=== PATIENT | male | born 1990 | race Caucasian/White ===

== ENCOUNTER 2018-03-11 14:56 | Emergency (ER) | payer MEDICAID, OTHER ==
[~2018-03-11] VITALS: Ht 175.3 cm; Wt 85.3 kg
[2018-03-11 15:08] VITALS: BP 163/62
[2018-03-11] MEDS ORDERED: ACETAMINOPHEN EXTRA STRENGTH 500 MG TAB PO ONE (15:15)
[2018-03-11 17:30] VITALS: BP 163/62
== END 2018-03-11 18:43 | disposition home or self-care (01) ==
LOC: MED 14:56
DX: B34.9 Viral infection, unspecified (principal); H61.23 Impacted cerumen, bilateral
CPT/HCPCS: 71046; 99284

== ENCOUNTER 2022-08-06 09:36 | Emergency (ER) | payer OTHER ==
[~2022-08-06] VITALS: Ht 177.8 cm; Wt 92.5 kg
[2022-08-06 09:44] VITALS: BP 121/84
--- NOTE | 2022-08-06 09:49 | NUR ---
Patient ambulated to bed 12 steady/even gait
--- NOTE | 2022-08-06 09:54 | NUR ---
32 y/o M BIB self from home c/o epigastric pain x 3 days, dry cough, nausea. Patient A&Ox4, ambulatory, states symptoms began 3 days ago; rates epigastric pain 8/10, sharp/intermittent, non-radiating pain. Worsens with laying down/at night; alleviates when sitting up. Abdomen quadrants non-tender to palpation. Patient states nausea worsens after meals. Reports COVID + 2 weeks ago. Denies chest pain, SOB, fever, chills, dysuria, vomiting, diarrhea, constipation, urinary symptoms. Denies meds prior to arrival. Bed locked in lowest position, side rails x 1. PMH/Sx/Meds: Denies NKDA
--- NOTE | 2022-08-06 12:18 | NUR ---
Dr. Tellez is evaluating patient at bedside
[2022-08-06] MEDS ORDERED: DICYCLOMINE HCL LIQUID 20 MG, ALUMINUM HYD/MAG/SIMETHICONE 30 ML, LIDOCAINE VISCOUS 2% ... PO ONE ×3 (12:55)
[2022-08-06] MEDS ORDERED: ALUMINUM HYD/MAG/SIMETHICONE 30 ML UDC ONE (13:02)
[2022-08-06] MEDS ORDERED: DICYCLOMINE HCL LIQUID 10 MG/5 ML UDC ONE (13:02)
--- NOTE | 2022-08-06 13:50 | NUR ---
Pt states no relief to epigastric pain. Pain 06/02. Dr. Tellez made aware.
[2022-08-06 13:54] VITALS: BP 105/72
--- NOTE | 2022-08-06 13:54 | NUR ---
Dr. Tellez is reevaluating pt at bedside
[2022-08-06 14:20] LABS: BASOPHILS % (AUTO) 0.3 % (0.0-2.0); EOSINOPHILS # (AUTO) 0.1 K/uL (0-0.4); EOSINOPHILS % (AUTO) 1.3 % (0.0-4.0); HEMOGLOBIN 15.4 g/dL (12.0-18.0); LYMPHOCYTES # (AUTO) 2.3 K/uL (2.0-11.5); LYMPHOCYTES % (AUTO) 28.5 % (20.5-51.1); MEAN CORPUSCULAR HEMOGLOBIN 29 pg (27-31); MEAN CORPUSCULAR HGB CONC 35 g/dL (33-37); MEAN CORPUSCULAR VOLUME 82.4 fL (80-94); MONOCYTES # (AUTO) 0.6 K/uL (0.8-1.0); MONOCYTES % (AUTO) 7.6 % (1.7-9.3); NEUTROPHILS % (AUTO) 62.3 % (42.2-75.2); PLATELET COUNT (AUTO) 194 K/uL (140-450); RED BLOOD CELL COUNT(AUTO) 5.34 MIL/uL (4.20-6.10); RED CELL DISTRIBUTION WIDTH 12.9 % (11.6-13.7)
[2022-08-06 14:43] LABS: ANION GAP 11.8 (8-16); ASPARTATE AMINOTRANSFERASE 17 U/L (15-37); CARBON DIOXIDE 29.4 mmol/L (21-32); CHLORIDE 104 mmol/L (98-107); CREATININE 1.6 mg/dL (0.6-1.3); GFR ARICAN-AMERICAN 66 mL/min (>90); GLUCOSE 105 mg/dL (74-106); LIPASE 129 U/L (73-393); POTASSIUM 4.2 mmol/L (3.5-5.1); SODIUM SERUM 141 mmol/L (136-145); TOTAL BILIRUBIN 0.6 mg/dL (0.0-1.0); UREA NITROGEN, BLOOD 16 mg/dL (7-18)
--- NOTE | 2022-08-06 15:02 | NUR ---
Dr. Tellez reevaluating pt at bedside
[2022-08-06] MEDS ORDERED: ONDA-188 SL (15:05)
--- NOTE | 2022-08-06 15:44 | NUR ---
Patient discharged with v/s stable. Written and verbal after care instructions given and explained. Patient alert, oriented and verbalized understanding of instructions. Ambulatory with steady gait. All questions addressed prior to discharge. ID band removed. Patient advised to follow up with PMD. Rx of Zofran ODT given. Patient educated on indication of medication including possible reaction and side effects. Opportunity to ask questions provided and answered. School/work note and lab work given.
== END 2022-08-06 15:44 | disposition home or self-care (01) ==
LOC: MED 09:36
DX: R10.13 Epigastric pain (principal)
CPT/HCPCS: 36415; 80053; 83690; 84484; 85025; 99283

== ENCOUNTER 2022-12-01 04:43 | Emergency (ER) | payer OTHER ==
[~2022-12-01] VITALS: Ht 175.3 cm; Wt 93.0 kg
[~2022-12-01 04:43] MED LIST: ONDA-188 SL
[2022-12-01 04:49] VITALS: BP 135/84
--- NOTE | 2022-12-01 04:52 | NUR ---
TO LOBBY A/W BED AMBULATORY
--- NOTE | 2022-12-01 05:00 | NUR ---
SEEN AND EXAMINED BY JOSE
[2022-12-01] MEDS ORDERED: DICYCLOMINE HCL LIQUID 20 MG, ALUMINUM HYD/MAG/SIMETHICONE 30 ML, LIDOCAINE VISCOUS 2% ... PO ONE ×3 (05:05)
--- NOTE | 2022-12-01 05:07 | NUR ---
PT MOVED TO ER CHAIR
[2022-12-01] MEDS ORDERED: ALUMINUM HYD/MAG/SIMETHICONE 30 ML UDC ONE (05:13)
[2022-12-01] MEDS ORDERED: DICYCLOMINE HCL LIQUID 10 MG/5 ML UDC ONE (05:13)
[2022-12-01] MEDS ORDERED: ONDANSETRON 4 MG/2 ML VIAL ONE (05:19)
[2022-12-01] MEDS ORDERED: ONDANSETRON 4 MG/2 ML VIAL IVP ONE (05:20)
--- NOTE | 2022-12-01 05:29 | NUR ---
Blood collected and sent to lab
--- NOTE | 2022-12-01 05:40 | NUR ---
Attempted to collect urine, pt refused at this time stating he feels dizzy and nauseated.
[2022-12-01 05:41] LABS: BASOPHILS % (AUTO) 0.4 % (0.0-2.0); EOSINOPHILS # (AUTO) 0.3 K/uL (0-0.4); EOSINOPHILS % (AUTO) 2.5 % (0.0-4.0); HEMATOCRIT 45.1 % (36-52); HEMOGLOBIN 15.4 g/dL (12.0-18.0); LYMPHOCYTES # (AUTO) 4.1 K/uL (2.0-11.5); LYMPHOCYTES % (AUTO) 37.8 % (20.5-51.1); MEAN CORPUSCULAR HEMOGLOBIN 29 pg (27-31); MEAN CORPUSCULAR HGB CONC 34 g/dL (33-37); MEAN CORPUSCULAR VOLUME 84.5 fL (80-94); MONOCYTES # (AUTO) 0.7 K/uL (0.8-1.0); MONOCYTES % (AUTO) 6.6 % (1.7-9.3); NEUTROPHILS # (AUTO) 5.7 K/uL (1.8-7.7); NEUTROPHILS % (AUTO) 52.7 % (42.2-75.2); PLATELET COUNT (AUTO) 163 K/uL (140-450); RED BLOOD CELL COUNT(AUTO) 5.33 MIL/uL (4.20-6.10); WHITE BLOOD COUNT (AUTO) 10.8 K/uL (4.8-10.8)
[2022-12-01] MEDS ORDERED: MORPHINE SULFATE 4 MG/ML SYR IVP ONE (05:45)
--- NOTE | 2022-12-01 05:46 | NUR ---
Per Pt, he had bowel movement a few days ago and noticed specks of blood. ER Dr. Perdomo made aware.
[2022-12-01 06:02] LABS: APPEARANCE,URINE CLEAR (CLEAR); BILIRUBIN,URINE NEGATIVE (NEGATIVE); BLOOD, URINE NEGATIVE (NEGATIVE); COLOR,URINE YELLOW (YELLOW); LEUKOCYTE ESTERASE ,URINE NEGATIVE (NEGATIVE); NITRITE, URINE NEGATIVE (NEGATIVE); PH,URINE 5.5 (5.0-9.0); UGLUCOSE NEGATIVE (NEGATIVE)
--- NOTE | 2022-12-01 06:06 | NUR ---
PT RETURN FROM RADIOLOGY
[2022-12-01 06:07] LABS: ALBUMIN 4.2 g/dL (3.4-5.0); ANION GAP 13.7 (8-16); ASPARTATE AMINOTRANSFERASE 25 U/L (15-37); CHLORIDE 101 mmol/L (98-107); CREATININE 1.1 mg/dL (0.6-1.3); GFR ARICAN-AMERICAN 101 mL/min (>90); GLUCOSE 118 mg/dL (74-106); LIPASE 254 U/L (73-393); POTASSIUM 3.7 mmol/L (3.5-5.1); SODIUM SERUM 141 mmol/L (136-145); TOTAL BILIRUBIN 0.3 mg/dL (0.0-1.0); UREA NITROGEN, BLOOD 17 mg/dL (7-18)
--- NOTE | 2022-12-01 06:31 | NUR ---
pt given morphine as ordered for back and abdominal pain
[2022-12-01] MEDS ORDERED: OMEP40EC23 PO (06:32)
[2022-12-01] MEDS ORDERED: IBUP-2213 PO (06:32)
[2022-12-01] MEDS ORDERED: ACET-8905 PO (06:32)
[2022-12-01 06:53] VITALS: BP 118/72
--- NOTE | 2022-12-01 06:53 | NUR ---
Patient discharged with v/s stable. Written and verbal after care instructions given and explained. Patient verbalized understanding. Ambulatory with steady gait. Pt to drive him home. New orders for norco, ibuprofen, omeprazole. All questions addressed prior to discharge. Advised to follow up with PMD.
== END 2022-12-01 06:53 | disposition home or self-care (01) ==
LOC: MED 04:43
DX: M54.6 Pain in thoracic spine (principal); R10.13 Epigastric pain; R06.02 Shortness of breath; Z79.899 Other long term (current) drug therapy
CPT/HCPCS: 36415; 71045; 80053; 81003; 83690; 84484; 85025; 85379; 93005; 96374; 96375; 99285; J2270; J2405